=== PATIENT | female | born 1990 | race American Indian/Alaskan Native ===

== ENCOUNTER 2017-04-26 22:20 | Emergency (ER) | payer MEDICAID ==
[2017-04-26 22:37] VITALS: BP 134/77
[2017-04-26] MEDS ORDERED: TYLENOL PO ONE (22:37)
== END 2017-04-26 23:00 | disposition left against medical advice (07) ==
LOC: ED 22:20
DX: J02.9 Acute pharyngitis, unspecified (principal); Z53.21 Procedure and treatment not carried out due to patient leaving prior to being seen by health care provider

== ENCOUNTER 2017-05-26 03:15 | Emergency (ER) | payer MEDICAID ==
[2017-05-26 03:33] VITALS: BP 105/61
[2017-05-26] MEDS ORDERED: TORADOL IV ONE (03:43)
[2017-05-26 04:50] LABS: Anion Gap 16 mmol/L; Basophils % (Auto) 0.8 % (0.0-1.8); Blood Urea Nitrogen 7 mg/dL (7-17); Calcium 8.7 mg/dL (8.4-10.2); Carbon Dioxide 23 mmol/L (22-30); Chloride 102.7 mmol/L (98-107); Eosinophils % (Auto) 2.3 % (0.0-4.3); Glucose 88 mg/dL (65-100); Hematocrit 36.8 % (30.3-42.9); Hemoglobin 12.1 gm/dl (10.1-14.3); Mean Corpuscular HGB Conc 33 % (30-34); Mean Corpuscular Volume 71 fl (79-97); Platelet Count 217 K/mm3 (140-440); Potassium 3.6 mmol/L (3.6-5.0); Red Blood Count 5.22 M/mm3 (3.65-5.03); Red Cell Distribution Width 15.1 % (13.2-15.2); Sodium 138 mmol/L (137-145); White Blood Count 14.5 K/mm3 (4.5-11.0)
[2017-05-26 04:54] LABS: Mean Corpuscular Hemoglobin 23 pg (28-32)
== END 2017-05-26 09:14 | disposition left against medical advice (07) ==
LOC: ED 03:15
DX: R10.9 Unspecified abdominal pain (principal); Z53.21 Procedure and treatment not carried out due to patient leaving prior to being seen by health care provider
CPT/HCPCS: 36415; 80048; 84703; 85025; J1885

== ENCOUNTER 2018-03-13 12:10 | Emergency (ER) | payer SELFPAY ==
[2018-03-13] MEDS ORDERED: XYLOCAINE 2% INFILTRATI ONE (15:00)
[2018-03-13] MEDS ORDERED: NORCO 5/325 PO ONE (15:00)
--- NOTE | 2018-03-13 15:06 | Emergency Department Report ---
Abscess Boil HPI - HPI Chief Complaint: Skin/Abscess/Foreign Body Stated Complaint: BOIL ON PRIVATE Time Seen by Provider: 03/13/18 14:54 Duration: 1 Week Location: Perianal Severity: Mild History: Yes Fever, Yes Pain, Yes Previous History, No Purulent Drainage, No Numbness, No Foreign Body, No Insect Bite HPI: This is a 27-year-old -[place] female that presents with an abscess to labia for 1 week. Child with a history of recurrent abscess to labia and axilla. Patient has been seen by [facility] and informed sweat glands are inflammed and started on antibiotics for prior abscess. Patient said 6 months ago she had this happen and it had to be I&D with antibiotics. Patient states this started out with a small bump which she tried to remove with tweezers because she thought it was ingrown hair. 2 days ago she started having nausea vomiting and diarrhea. She decided to soaking the toe with no improvement of symptoms. Patient reports these symptoms are very similar to last presentation. Denies drainage, numbness or tingling, infected bite, fever , chest pain, shortness of breath. Home Medications: Previous Rx's Medication Instructions Recorded Last Taken Type Ibuprofen [Motrin 800 MG tab] 800 mg PO Q8HR PRN #15 tablet 03/13/18 Unknown Rx Sulfamethoxazole/Trimethoprim 1 each PO BID 10 Days #20 tablet 03/13/18 Unknown Rx [Bactrim DS TAB] traMADol [Ultram 50 MG tab] 50 mg PO Q6HR PRN #12 tablet 03/13/18 Unknown Rx Allergies/Adverse Reactions: Allergies Allergy/AdvReac Type Severity Reaction Status Date / Time No Known Allergies Allergy Verified 03/13/18 12:17 ED Review of Systems ROS: Stated complaint: BOIL ON PRIVATE Other details as noted in HPI Constitutional: denies: chills, fever Respiratory: denies: cough, shortness of breath, wheezing Cardiovascular: denies: chest pain, palpitations Gastrointestinal: denies: abdominal pain, nausea, diarrhea Skin: lesions (abscess to labia on left side). denies: rash Neurological: denies: headache, weakness, paresthesias Psychiatric: denies: anxiety, depression ED Past Medical Hx - Past Medical History Previous Medical History?: No - Surgical History Additional Surgical History: C/S - Social History Smoking Status: Current Every Day Smoker Substance Use Type: Marijuana - Medications Home Medications: Home Medications Medication Instructions Recorded Confirmed Last Taken Type Ibuprofen [Motrin 800 MG tab] 800 mg PO Q8HR PRN #15 tablet 03/13/18 Unknown Rx Sulfamethoxazole/Trimethoprim 1 each PO BID 10 Days #20 tablet 03/13/18 Unknown Rx [Bactrim DS TAB] traMADol [Ultram 50 MG tab] 50 mg PO Q6HR PRN #12 tablet 03/13/18 Unknown Rx ED Abscess Boil Physical Exam - Exam General: Vital signs noted. No distress. Alert and acting appropriately. Front/Back of Body, Lg (Color): 1 - 2 cm erythematous nodule to left side of the mons pubis, tender, fluctuant , no active bleeding or surrounding cellulitis Size: 2 cm Exam: Yes Tenderness, Yes Fluctuance, Yes Normal Neurologic Exam, Yes Normal Circulation, No Surrounding Cellulites/Erythema, No Lymphangitis, No Crepitation , No Heart Murmur I & D Note - I & D Note I & D Note: The area was prepared and draped in the usual, sterile manner. The site was anesthetized with 2% lidocaine without epinephrine. A linear incision along the local skin lines was made and the purulent material expressed. The abcess was explored thoroughly and sequestered pockets were opened. Bleeding was minimal. Packing: idodoform. Followup: The patient tolerated the procedure well without complications. Standard post-procedure care was explained and return precautions are given. ED Course Vital Signs 03/13/18 12:17 Temperature 99 F Pulse Rate 99 H Respiratory 18 Rate Blood Pressure 122/81 O2 Sat by Pulse 98 Oximetry Critical care attestation.: If time is entered above; I have spent that time in minutes in the direct care of this critically ill patient, excluding procedure time. ED Medical Decision Making - Medical Decision Making This is a 27 y.o. female that presents with a painful abscess to left side of mons pubis for 1 week. History of prior abscess in this area and axilla. Patient is stable and examined by me. Patient given [place] 5/325 mg by mouth once while in ER. Physical assessment of 2 cm fluctuance left side mons pubis. No acute signs of distress noted. I&D refer to note. Discussed plan to start bactrim DS and ibuprofen with patient. Educated patient on follow up plan to have packing removed and wound reassessed in 2-3 days. Patient agrees to ED plan of care. Discharged home and follow up with PCP in 2-3 days. ED Disposition Clinical Impression: Abscess, Perineal abscess Disposition: TO HOME OR SELFCARE Is pt being admited?: No Does the pt Need Aspirin: No Condition: Stable Instructions: Abscess Incision and Drainage (ED), Abscess (ED) Additional Instructions: Keep packing in place for 2-3 days. Return to ER or f/u with PCP to have packing removed and wound reassessed. Complete full round of bactrim DS antibiotic as prescribed. Follow up with PCP or ER in 2-3 days. Return to ER if foul smelling discharge, swelling, or severe pain to wound. Prescriptions: Ibuprofen [Motrin 800 MG tab] 800 mg PO Q8HR PRN #15 tablet PRN Reason: Pain, Moderate (4-6) Sulfamethoxazole/Trimethoprim [Bactrim DS TAB] 1 each PO BID 10 Days #20 tablet traMADol [Ultram 50 MG tab] 50 mg PO Q6HR PRN #12 tablet PRN Reason: Pain Referrals: [facility] [Outside] - 3-5 Days [facility] [Outside] - 3-5 Days [facility] [Provider Group] - 3-5 Days Time of Disposition: 15:38 Print Language: ITALIAN
[2018-03-13] MEDS ORDERED: NACL 0.9% 500 ML IR ONE (16:06)
[2018-03-13] MEDS ORDERED: NACL 0.9% IR ONE (16:08)
[2018-03-13] MEDS ORDERED: MOTRIN ONE (16:26)
[2018-03-13] MEDS ORDERED: XANAX ONE (16:27)
[2018-03-13] MEDS ORDERED: XANAX PO ONE (16:33)
[2018-03-13] MEDS ORDERED: MOTRIN PO ONE (16:34)
[2018-03-13 17:00] VITALS: BP 121/75
== END 2018-03-13 16:56 | disposition home or self-care (01) ==
LOC: ED 12:10
DX: L02.215 Cutaneous abscess of perineum (principal); F17.200 Nicotine dependence, unspecified, uncomplicated; F12.10 Cannabis abuse, uncomplicated
CPT/HCPCS: 99281

== ENCOUNTER 2020-04-05 19:07 | Emergency (ER) | payer MEDICAID ==
[2020-04-05 19:27] VITALS: BP 109/68
== END 2020-04-05 23:00 | disposition left against medical advice (07) ==
LOC: ED 19:07
DX: M79.604 Pain in right leg (principal); Z53.21 Procedure and treatment not carried out due to patient leaving prior to being seen by health care provider